=== PATIENT | male | born 1995 | race African-American/Black ===

== ENCOUNTER 2018-11-30 13:06 | Emergency (ER) | payer BC ==
[~2018-11-30] VITALS: Ht 180.3 cm; Wt 99.9 kg
--- OUTSIDE RECORDS SUMMARY | 2018-11-30 13:08 | XMS REPORT | Clinical Summary ---
Author Author KYLE [facility] Address Unknown Phone Unavailable Care Team Providers Care Html Developer Name Role Phone PCP Unavailable Allergies No Known Allergies Medications End Date Status Medication Sig Dispensed Refills Start Date Active metroNIDAZOLE (FLAGYL) Take 1 tablet 14 tablet 0 500 MG tablet (500 mg 8 total) by mouth 2 (two) times daily. Active Problems Not on file Social History Date Tobacco Use Types Packs/Day Years Used Never Smoker Smokeless Tobacco: Never Used Alcohol Use Drinks/Week oz/Week Comments No Sex Assigned at Date Recorded Not on file Industry Job Start Date Occupation Not on file Not on file Not on file Travel End Travel History Travel Start No recent travel history available. Last Filed Vital Signs Not on file Plan of Treatment Not on file Results Not on fileafter 11/29/2017
--- OUTSIDE RECORDS SUMMARY | 2018-11-30 13:08 | XMS REPORT ---
Author Author [facility] Address Unknown Phone Unavailable Care Team Providers Care Telemetry Nurse Name Role Phone Vicki WIN Unavailable Unavailable Problems This patient has no known problems. Allergies, Adverse Reactions, Alerts This patient has no known allergies or adverse reactions. Medications This patient has no known medications. Results Test Description Test Time Test Comments Text Results Atomic Results Result Comments URINE CULTURE 2017-10-31 06:34:00 CULTURE (BEAKER) (test jtbd=4045) ESCHERICHIA COLI >100,000 col/mL Escherichia coli Amikacin (test code=1) Ampicillin + Sulbactam (test code=6) Aztreonam (test code=32) Cefepime (test code=51) Cefoxitin (test code=68) Ceftazidime (test code=27) Ceftriaxone (test code=52) Ertapenem (test code=38) Gentamicin (test code=18) Levofloxacin (test code=22) Meropenem (test code=34) Nitrofurantoin (test code=23) Piperacillin + Tazobactam (test code=29) Tetracycline (test code=2) Tobramycin (test code=25) Trimethoprim + Sulfamethoxazole (test code=47) URINALYSIS W/ [id number] 08:36:00* Test Item Value Reference Range Comments COLOR (BEAKER) (test loit=695) Yellow CLARITY (BEAKER) (test xnms=813) Slightly Cloudy SPECIFIC GRAVITY UA (BEAKER) (test ncbd=723) 1.035 1.001-1.035 Read from the refractometer. PH UA (BEAKER) (test veud=292) 6.0 5.0-8.0 PROTEIN UA (BEAKER) (test bsfg=075) 30 mg/dL Negative GLUCOSE UA (BEAKER) (test bhmd=503) Negative Negative KETONES UA (BEAKER) (test shhr=882) Negative Negative BILIRUBIN UA (BEAKER) (test qnsj=654) Negative Negative BLOOD UA (BEAKER) (test izyt=675) Moderate Negative NITRITE UA (BEAKER) (test wsjd=166) Negative Negative LEUKOCYTE ESTERASE UA (BEAKER) (test ydum=908) Moderate Negative UROBILINOGEN UA (BEAKER) (test djxy=444) 1.0 mg/dL 0.2-1.0 BACTERIA (BEAKER) (test vbjj=134) Many RBC UA-MANUAL (BEAKER) (test usod=8738) 10-20 /HPF WBC UA-MANUAL (BEAKER) (test qkuy=6846) 10-20 /HPF SQUAMOUS EPITHELIAL MANUAL (BEAKER) (test fdnh=9365) <5 /HPF SOURCE(BEAKER) (test ausq=1465)
--- NOTE | 2018-11-30 14:10 | NUR ---
Transfer center called for transfer to [facility] for urology per Dr. Duarte
--- NOTE | 2018-11-30 14:52 | NUR ---
[facility] called for transport and ETA is 30 minutes
--- NOTE | 2018-11-30 14:55 | NUR ---
HARJEET faxed to [facility] for approval
--- NOTE | 2018-11-30 15:31 | NUR ---
Report to PAYAM Glover at [phone]
== END 2018-11-30 15:20 | disposition other institution (70) ==
LOC: FSED 13:06
DX: N48.30 Priapism, unspecified (principal)
CPT/HCPCS: 99283